=== PATIENT | female | born 1955 | race Caucasian/White ===

== ENCOUNTER 2017-09-24 14:43 | Emergency (ER) | payer OTHER ==
[~2017-09-24] VITALS: Ht 167.6 cm; Wt 88.7 kg
[~2017-09-24 14:43] MED LIST: ARIP15TA3 PO; BENZ0.5T PO; CALC-545 PO; CHOL2000 PO; DIVA500T4 PO; FLUP25VI2 IM; MELA1TAB15 PO; MIDO10TA PO; MULT-257 PO; NITR100C6 PO; PALI273S IM; TRAZ50TA18 PO
[2017-09-24 14:44] VITALS: BP 135/83
== END 2017-09-24 15:48 | disposition home or self-care (01) ==
LOC: ED 15:42
DX: Z76.0 Encounter for issue of repeat prescription (principal); F51.01 Primary insomnia
CPT/HCPCS: 99283

== ENCOUNTER 2018-05-25 20:44 | Emergency (ER) | payer OTHER ==
[~2018-05-25] VITALS: Ht 165.1 cm; Wt 85.8 kg
[~2018-05-25 20:44] MED LIST changes: -BENZ0.5T PO; +BENZ0.5T35 PO; +TRAZ-136 PO; -TRAZ50TA18 PO
[2018-05-25 20:46] VITALS: BP 133/79
== END 2018-05-25 21:55 | disposition home or self-care (01) ==
LOC: ED 21:10
DX: F22 Delusional disorders (principal)
CPT/HCPCS: 99281

== ENCOUNTER 2019-11-24 18:13 | Emergency (ER) | payer MEDICARE ==
[~2019-11-24] VITALS: Ht 167.6 cm; Wt 70.0 kg
[~2019-11-24 18:13] MED LIST changes: -TRAZ-136 PO; +TRAZ50TA66 PO
--- NOTE | 2019-11-24 18:29 | NUR ---
ERMS SHAM AT BEDSIDE FOR EVALUATION
--- NOTE | 2019-11-24 18:46 | NUR ---
REPORT TO TOMER SCRUGGS
[2019-11-24 18:48] LABS: BASOPHILS # (AUTO) 0.03 x10^3/uL (0-0.1); BASOPHILS % (AUTO) 0 % (0-1); EOSINOPHILS # (AUTO) 0.08 x10^3/uL (0-0.4); EOSINOPHILS % (AUTO) 1 % (1-7); LYMPHOCYTES # (AUTO) 2.14 x10^3/uL (1-3.4); LYMPHOCYTES % (AUTO) 26 % (22-44); MD NO; MEAN CORPUSCULAR HEMOGLOBIN 32.3 pg (27.0-34.8); MEAN CORPUSCULAR HGB CONC 33.5 g/dL (32.4-35.8); MEAN CORPUSCULAR VOLUME 96.4 fL (80-100); MEAN PLATELET VOLUME 7.8 fL (7.4-10.4); MONOCYTES # (AUTO) 0.48 x10^3/uL (0.2-0.8); MONOCYTES % (AUTO) 6 % (2-9); NEUTROPHILS # (AUTO) 5.38 x10^3/uL (1.8-6.8); NEUTROPHILS % (AUTO) 66 % (42-75); PLATELET COUNT 228 x10^3/uL (130-400); RED BLOOD COUNT 4.36 x10^6/uL (3.82-5.3); RED CELL DISTRIBUTION WIDTH 13.1 % (9.6-15.2)
--- NOTE | 2019-11-24 18:54 | NUR ---
REPORT FROM JEANETH SCRUGGS. PT RESTING. ROOM SECURED AND 1 BAG OF BELONGINGS LOCKED AWAY. VSS. PT RESTING WITH EYES CLOSED. EVEN RISE AND FALL OF CHEST OBSERVED. SITTER IN VIEW OF PT.
[2019-11-24 19:00] LABS: ALANINE AMINOTRANSFERASE 24 U/L (12-78); ALBUMIN 3.3 g/dL (3.4-5.0); ANION GAP 6 mmol/L (5-15); CALCIUM 9.5 mg/dL (8.5-10.1); CHLORIDE 109 mmol/L (98-107); CREATININE 0.61 mg/dL (0.55-1.02)
[2019-11-24 19:01] LABS: SALICYLATE LEVEL < 1.7 mg/dL (2.8-20.0)
[2019-11-24 19:02] LABS: ALKALINE PHOSPHATASE 90 U/L (45-117); BILIRUBIN,TOTAL 0.4 mg/dL (0.2-1.0); TOTAL PROTEIN 7.6 g/dL (6.4-8.2)
[2019-11-24 19:05] LABS: AMPHETAMINE SCREEN, URINE Negative (Negative); BARBITURATE SCREEN, URINE Negative (Negative); BENZODIAZEPINE SCREEN, URINE Negative (Negative); CANNABINOID SCREEN, URINE Negative (Negative); COCAINE SCREEN, URINE Negative (Negative); METHADONE SCREEN, URINE Negative (Negative); OPIATE SCREEN, URINE Negative (Negative)
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
--- NOTE | 2019-11-24 20:01 | NUR ---
pt given a sandwich and chips. Pt has no other needs at this time. call light in reach
--- NOTE | 2019-11-24 21:16 | NUR ---
PT REQUESTED MILK. PT GIVEN MILK AND IS NOW BACK IN BED. SITTER IN VIEW OF PT. VSS.
--- NOTE | 2019-11-24 22:30 | NUR ---
PT GIVEN BLANKET ON REQUEST. PT IN BED AND HAS NO OTHER NEEDS AT THIS TIME. SITTER IN VIEW OF PT.
--- NOTE | 2019-11-25 00:04 | NUR ---
Pt sleeping. even rise and fall of chest observed. Sitter in view of pt
--- NOTE | 2019-11-25 01:07 | NUR ---
Pt resting in nad. even rise and fall of chest observed. Sitter in view of pt.
--- NOTE | 2019-11-25 02:20 | NUR ---
PT SLEEPING. EVEN RISE AND FALL OF CHEST OBSERVED. SITTER IN VIEW OF PT
--- NOTE | 2019-11-25 03:17 | NUR ---
PT SLEEPING. EVEN RISE AND FALL OF CHEST OBSERVED. SITTER IN VIEW OF PT
--- NOTE | 2019-11-25 04:15 | NUR ---
pT RESTING WITH EYES CLOSED. EVEN RISE AND FALL OF CHEST OBSERVED. PT IN NAD. SITTER IN VIEW OF PT.
--- NOTE | 2019-11-25 05:10 | NUR ---
pT RESTING WITH EYES CLOSED. EVEN RISE AND FALL OF CHEST OBSERVED. PT IN NAD. SITTER IN VIEW OF PT.
--- NOTE | 2019-11-25 06:20 | NUR ---
PT UP TO BATHROOM. SITTER IN VIEW OF PT.
--- NOTE | 2019-11-25 06:52 | NUR ---
REPORT RECEIVED FROM TOMER SCRUGGS.
--- NOTE | 2019-11-25 08:23 | NUR ---
pt sleeping. resps even and unlabored. sitter monitoring from hallway. room remains secure.
--- NOTE | 2019-11-25 09:05 | NUR ---
pt resting. pt's aox4. resps even and unlabored. sitter monitoring from hallway for safety. room remains secure. vss.
--- NOTE | 2019-11-25 09:59 | NUR ---
pt amb to br and back to room with steady gait.
--- NOTE | 2019-11-25 10:25 | NUR ---
crusher plant operator at bedside to evaluate at this time.
--- NOTE | 2019-11-25 10:56 | NUR ---
MEAL TRAY ORDERED AT THIS TIME.
--- NOTE | 2019-11-25 11:23 | NUR ---
MEDICATION ORDERED FROM PHARMACY AT THIS TIME.
[2019-11-25] MEDS: RISPERIDONE 0.5 MG TABLET PO SCH ×2 (11:30→22:30)
--- NOTE | 2019-11-25 11:51 | NUR ---
MEAL TRAY PROVIDED AT THIS TIME.
--- NOTE | 2019-11-25 12:16 | NUR ---
BREAK RN: PT CURRENTLY DOZING ON NGUYEN. NAD NOTED. SKIN PWD. RESP EVEN AND UNLABORED. GARAGE DOORS DOWN IN ROOM. BELONGINGS IN LOCKED LOCKER. SITTER AT DOORSIDE.
--- NOTE | 2019-11-25 12:51 | NUR ---
PT MEDICATED PER EMAR. PT TOLERATED WELL.
--- NOTE | 2019-11-25 13:38 | NUR ---
PT RESTING. RESPS EVEN AND UNLABORED. SITTER MONITORING FROM HALLWAY FOR SAFETY. ROOM REMAINS SECURE.
--- NOTE | 2019-11-25 14:24 | NUR ---
PT STATES "I'M LEAVING. I NEED MY BELONGINGS." THIS RN EDUCATED REGARDING HER SITUATION. PT VERBALY UNDERSTANDING AT THIS TIME.
--- NOTE | 2019-11-25 15:29 | NUR ---
PT RESTING. RESPS EVEN AND UNLABORED. SITTER MONITORING FROM HALLWAY FOR SAFETY. ROOM REMAINS SECURE.
--- NOTE | 2019-11-25 16:28 | NUR ---
PT RESTING. RESPS EVEN AND UNLABORED. SITTER MONITORING FROM HALLWAY FOR SAFETY. ROOM REMAINS SECURE.
--- NOTE | 2019-11-25 17:03 | NUR ---
MEAL TRAY ORDERED AT THIS TIME.
--- NOTE | 2019-11-25 17:28 | NUR ---
MEAL TRAY PROVIDED AT THIS TIME.
--- NOTE | 2019-11-25 17:52 | NUR ---
pt's best friend phone number Dagoberto [phone] please call when pt dc/or transfer.
--- NOTE | 2019-11-25 18:30 | NUR ---
PT RESTING. SITTER MONITORING FROM HALLWAY. ROOM REMAINS SECURE.
--- NOTE | 2019-11-25 19:48 | NUR ---
1st contact c pt. resting on cart. sitter outside of room. denies any needs. dinner tray outside of room.
--- NOTE | 2019-11-25 20:58 | NUR ---
pt requesting dinner tray. sandwich provided. vss. pt resting her belongings & to leave after her meal. attempting to explain process. pt calm & cooperative. sitter remains outside of room. will ctm.
[2019-11-25] MEDS: BENZTROPINE 1 MG TABLET PO SCH (21:00)
--- NOTE | 2019-11-25 21:00 | NUR ---
pt refusing cogentin. "it makes me constipated"
--- NOTE | 2019-11-25 21:22 | NUR ---
pt standing naked in doorway, "i need my clothes, im leaving, im calling the police..youre kidnapping me". pt ambulatory to restroom, bedding changed & given new hospital gown. sitter outside of room. will ctm.
[2019-11-25] MEDS ORDERED: RISPERIDONE 2 MG TABLET ONE (22:26)
--- NOTE | 2019-11-25 22:45 | NUR ---
pt resting on cart in nad, rr even non labored. watching tv. denies any needs. sitter remains outside of room. will ctm.
--- NOTE | 2019-11-26 00:19 | NUR ---
pt sleeping in bed. rr even non labored. sitter remains outside of room. will ctm.
--- NOTE | 2019-11-26 01:15 | NUR ---
pt sleeping in bed. rr even non labored. sitter remains outside of room. will ctm.
--- NOTE | 2019-11-26 02:16 | NUR ---
pt sleeping in bed. rr even non labored. sitter remains outside of room. will ctm.
--- NOTE | 2019-11-26 03:34 | NUR ---
pt sleeping in bed, nad. rr even non labored. sitter remains outside of room. will ctm.
--- NOTE | 2019-11-26 04:01 | NUR ---
pt sleeping in bed. rr even non labored. sitter remains outside of room. will ctm.
--- NOTE | 2019-11-26 05:10 | NUR ---
pt sleeping in bed. rr even non labored. sitter remains outside of room. will ctm.
--- NOTE | 2019-11-26 06:15 | NUR ---
pt sleeping in bed. rr even non labored. sitter remains outside of room. will ctm.
--- NOTE | 2019-11-26 06:19 | NUR ---
breakfast tray ordered.
--- NOTE | 2019-11-26 07:13 | NUR ---
RECEIVED REPORT FROM SHEBA NORTH. PT IN BED, EYES CLOSED, RESPIRATIONS EVEN AND UNLABORED, NO SIGNS OF DISTRESS, LIGHTS OFF TO PROMOTE REST. IN VIEW OF SITTER.
--- NOTE | 2019-11-26 08:15 | NUR ---
PT CONDITION REMAINS UNCHANGED.
--- NOTE | 2019-11-26 09:29 | NUR ---
PT SITTING IN BED, EATING BREAKFAST, PT GOT UP NAKED, PT TOLD TO PUT ON GOWN AND THEN COULD HAVE BREAKFAST, INITIALLY PT STATED SHE DIDN'T NEED A GOWN SHE NEEDED CLOTHES TO LEAVE BUT WAS COMPLIANT WITH PUTTING GOWN ON.
[2019-11-26] MEDS: RISPERIDONE 0.5 MG TABLET PO SCH (09:33)
--- NOTE | 2019-11-26 09:34 | NUR ---
BREAK RN: MEDICATION ADMINISTERED PER EMAR. PT SITTING UP EATING BREAKFAST. NO NEEDS AT THIS TIME. SI PRECAUTIONS IMPLEMENTED. SITTER OUTSIDE OF DOOR. RN TO CONTINUE TO MONITOR.
--- NOTE | 2019-11-26 10:10 | NUR ---
PT STATES SHE IS NOT AND WAS NEVER SI, SHE "ONLY MADE STATEMENTS TO AVOID BEING KIDNAPPED" PT TALKING ABOUT GIVING HER CARE TO SOMEONE AND DIFFERENT AUTOINSURANCES, PT KNOWS WHERE SHE IS, PT MADE A REQUEST FOR EX-LAX STATING SHE HASN'T HAD A BM IN 3 DAYS, NO RELATED GI/ S/SX.
--- NOTE | 2019-11-26 11:09 | NUR ---
PT LAYING IN BED, RESPIRATIONS EVEN AND UNLABORED, TV ON.
--- NOTE | 2019-11-26 11:10 | NUR ---
PT REMAINS IN VIEW OF SITTER.
[2019-11-26] MEDS ORDERED: DOCUSATE 100 MG CAPSULE PO PRN (11:30)
[2019-11-26] MEDS ORDERED: BISACODYL 5 MG EC TABLET PO PRN (11:30)
--- NOTE | 2019-11-26 11:44 | NUR ---
PT ON PHONE WITH PAT FROM TELE-COURT.
--- NOTE | 2019-11-26 12:12 | NUR ---
PT AMBULATORY TO BATHROOM.
--- NOTE | 2019-11-26 13:07 | NUR ---
REPORT RECEIVED FROM SHEBA LOZADA. ASSUMING PRIMARY CARE OF PT.
--- NOTE | 2019-11-26 13:14 | NUR ---
LUNCH DELIVERED TO PT.
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
--- NOTE | 2019-11-26 15:44 | NUR ---
RN ORDERED PT A HOSPITAL BED. AWAITING DELIVERY.
[2019-11-26] MEDS ORDERED: DOCUSATE 100 MG CAPSULE ONE (16:07)
--- NOTE | 2019-11-26 16:12 | NUR ---
PT STATED HAD A BM TODAY BUT IS REQUESTING A STOOL SOFTNER. RN ADMINISTERED MEDICATION PER EMAR. PT NOW ON HOSPITAL BED.
--- NOTE | 2019-11-26 16:30 | NUR ---
DINNER DELIVERED TO PT.
--- NOTE | 2019-11-26 17:48 | NUR ---
PT RESTING COMFORTABLY ON GURNEY WATCHING TV. SI PRECAUTIONS IMPLEMENTED. SITTER OUTSIDE OF ROOM MONITORING PT. NO NEEDS AT THIS TIME. RN TO CONTINUE TO MONITOR.
--- NOTE | 2019-11-26 18:47 | NUR ---
RANDAL PT'S "BEST FRIEND" CALLED TO UPDATE RN. RANDAL STATED THAT PT WAS IN [place] FOR 2 [place]/2 MONTHS AND WAS RELEASED 10 DAYS AGO. RANDAL STATED WE "SHOULD NOT SEND HER TO A MENTAL HOSPITAL BECAUSE THEY DONT HELP AND JUST GET FRUSTERATED WITH HER." RANDAL STATED HE WOULD LOOK AFTER HER IF SHE GETS DISCHARGED. PT STATES BIRTHDATE IS 1955. RANDAL STATED THAT PT'S NAME IS LEANNE BUCHANAN. RN TO UPDATE THROUGHPUT.
--- NOTE | 2019-11-26 19:04 | NUR ---
REPORT TO SHEBA ELIZABETH.
--- NOTE | 2019-11-26 19:04 | NUR ---
Report received from SHEBA Dey. This RN to assume care. Patient resting in [facility] with no complaints. Room secured. Sitter outside.
--- NOTE | 2019-11-26 20:20 | NUR ---
Patient resting in gurney with no complaints. Respirations even and unlabored. Room secured; sitter outside.
[2019-11-26] MEDS: BENZTROPINE 1 MG TABLET PO SCH (21:00)
[2019-11-26] MEDS ORDERED: RISPERIDONE 0.5 MG TABLET PO SCH (21:00)
--- NOTE | 2019-11-26 21:10 | NUR ---
Medicated patient per mar. Patient resting in [facility] with no complaints. Respirations even and unlabored. Room secured; sitter outside.
[2019-11-26] MEDS ORDERED: BENZTROPINE 1 MG TABLET ONE (21:15)
--- NOTE | 2019-11-26 22:25 | NUR ---
Patient sleeping in [facility] with no complaints. Respirations even and unlabored. Room secured; sitter outside.
--- NOTE | 2019-11-26 23:30 | NUR ---
Patient sleeping in [facility] with no complaints. Respirations even and unlabored. Room secured; sitter outside.
--- NOTE | 2019-11-27 00:20 | NUR ---
Patient sleeping in [facility] with no complaints. Respirations even and unlabored. Room secured; sitter outside.
--- NOTE | 2019-11-27 01:46 | NUR ---
Patient sleeping in [facility] with no complaints. Respirations even and unlabored. Room secured; sitter outside.
--- NOTE | 2019-11-27 02:42 | NUR ---
Patient sleeping in [facility] with no complaints. Respirations even and unlabored. Room secured; sitter outside.
--- NOTE | 2019-11-27 03:50 | NUR ---
Patient sleeping in [facility] with no complaints. Respirations even and unlabored. Room secured; sitter outside.
--- NOTE | 2019-11-27 04:30 | NUR ---
Patient sleeping in [facility] with no complaints. Respirations even and unlabored. Room secured; sitter outside.
--- NOTE | 2019-11-27 04:59 | NUR ---
Patient sleeping in [facility] with no complaints. Respirations even and unlabored. Room secured; sitter outside.
--- NOTE | 2019-11-27 05:37 | NUR ---
Patient awake and requesting underwear. Provided maternity underwear.
--- NOTE | 2019-11-27 07:35 | NUR ---
Received bedside report from SHEBA Gauthier. All questions answered. Pt resting with eyes closed on right lateral side with unlabored respirations and even chest rise and fall. Room remains secured for SI/HI. Sitter in direct line of sight for observation. No needs expressed at this time.
[2019-11-27] MEDS ORDERED: RISPERIDONE 0.5 MG TABLET PO SCH (09:00)
--- NOTE | 2019-11-27 09:02 | NUR ---
LATE NOTE ENTRY DUE TO PT CARE for 0800: Provided pt meal tray. Pt sitting on hospital bed in SI/HI secured room with sitter in direct line of sight for observation. No needs expressed at this time.
--- NOTE | 2019-11-27 09:03 | NUR ---
LATE NOTE ENTRY FOR 0858: Called pharmacy to follow up on medication request yellow slip that was sent prior. Pharmacy tubed meds to dept.
--- NOTE | 2019-11-27 09:14 | NUR ---
TOOK VITALS 0910
[2019-11-27 09:20] VITALS: BP 118/77
--- NOTE | 2019-11-27 09:24 | NUR ---
Pt is AOx2 to person and place. Pt denies SI/HI. Pt pain. Provided pt medication per EMAR. Pt appreciative. No other needs expressed at this time.
--- NOTE | 2019-11-27 11:00 | NUR ---
Pt resting on hospital bed with eyes closed. Pt has unlabored respirations with even chest rise and fall. No needs expressed at this time. Room remains secured for SI/HI. Sitter in direct line of sight for observation.
--- NOTE | 2019-11-27 12:09 | NUR ---
BREAK RN: PT CALMLY SLEEPING ON HOSPITAL BED, NAD WITH EQUAL CHEST RISE/FALL, NO NEEDS AT THIS TIME, MEAL TRAY GIVEN BY PRIMARY RN, PT REMAINS IN SAFE ENVIRONMENT, SITTER IN VIEW.
--- NOTE | 2019-11-27 13:20 | NUR ---
Attempted to contact pt's "best friend Dagoberto" at phone number [phone], left vm requesting a phone call back.
--- NOTE | 2019-11-27 13:53 | NUR ---
Dagoberto returned phone call and states he will be brining identificaiton to ED for copies around 5pm today.
--- NOTE | 2019-11-27 14:02 | NUR ---
Pt resting asleep on hospital bed. NADN. No needs expressed at this time. Sitter near doorway in direct line of sight for observation. Pt has unlabored respirations with even chest rise and fall.
--- NOTE | 2019-11-27 16:05 | NUR ---
Pt's friend Dagoberto provided pt's ID to ED admitting and this was provided to throughput RN. Pt awake sitting on hospital eating lunch tray. No needs expressed at this time. Sitter in direct line of sight for observation.
--- NOTE | 2019-11-27 16:52 | NUR ---
Provided report to SHEBA Best for U. All questions answered. Pt ready to transfer from ED to U 383.
[2019-11-28] MEDS ORDERED: CHLO200T2 PO (10:09)
[2019-11-28] MEDS ORDERED: BENZ0.5T35 PO (10:12)
== END 2019-11-27 17:35 ==
LOC: EDBD → ED 19:04 → MERGE 19:04 → ED 11-27 17:35
DX: F23 Brief psychotic disorder (principal); Z87.891 Personal history of nicotine dependence
CPT/HCPCS: 36415; 80053; 80307; 85025; 99285

== ENCOUNTER 2020-09-02 10:55 | Emergency (ER) | payer MEDICARE ==
[~2020-09-02] VITALS: Ht 167.6 cm; Wt 87.8 kg
[~2020-09-02 10:55] MED LIST changes: -CALC-545 PO; +CALC-780 PO; +CHLO200T2 PO; +MULT9LIQ10 PO; +OXCA150T18 PO; +ZOLP10TA PO
--- NOTE | 2020-09-02 14:20 | NUR ---
PT RESTING IN BED WITH MONITOR ON, PT VSS. PT HAS REQUESTED A PAIN MED FOR HER CRONIC R THIGH PAIN, PROVIDER NOTIFIED.
[2020-09-02] MEDS ORDERED: HYDROcodone/APAP 5/325 TABLET ONE (14:50)
--- NOTE | 2020-09-02 14:53 | NUR ---
PT MEDICATED PER MAR
[2020-09-02] MEDS ORDERED: HYDROcodone/APAP 5/325 TABLET PO ONE (15:00)
[2020-09-02 15:21] VITALS: BP 137/80
== END 2020-09-02 15:28 | disposition home or self-care (01) ==
LOC: ED 11:14
DX: M25.551 Pain in right hip (principal); F20.9 Schizophrenia, unspecified; Z20.822 Contact with and (suspected) exposure to COVID-19; Z91.14 Patient's other noncompliance with medication regimen; Z86.73 Personal history of transient ischemic attack (TIA), and cerebral infarction without residual deficits
CPT/HCPCS: 71045; 87635; 99284

== ENCOUNTER 2020-09-07 09:36 | Emergency (ER) | payer SELFPAY | END 2020-09-07 10:21 | disposition left against medical advice (07) | LOC: EDUNIT# 09:36 → ED 09:36 | DX: Z53.21 Procedure and treatment not carried out due to patient leaving prior to being seen by health care provider (principal) ==

== ENCOUNTER 2020-09-07 09:39 | Emergency (ER) | payer MEDICARE ==
[~2020-09-07] VITALS: Ht 167.6 cm; Wt 88.2 kg
[2020-09-07 09:49] VITALS: BP 119/51
[2020-09-07] MEDS ORDERED: ARIPIPRAZOLE 5 MG TABLET PO SCH (10:30)
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
[2020-09-07 11:16] LABS: BASOPHILS % (AUTO) 1 % (0-1); EOSINOPHILS % (AUTO) 2 % (1-7); LYMPHOCYTES % (AUTO) 40 % (22-44); MEAN CORPUSCULAR HGB CONC 33.3 g/dL (32.4-35.8); MEAN PLATELET VOLUME 7.9 fL (7.4-10.4); MONOCYTES % (AUTO) 7 % (2-9); NEUTROPHILS % (AUTO) 50 % (42-75); PLATELET COUNT 259 x10^3/uL (130-400); RED BLOOD COUNT 4.11 x10^6/uL (3.82-5.3); RED CELL DISTRIBUTION WIDTH 13.2 % (9.6-15.2)
[2020-09-07 11:21] LABS: MD NO
[2020-09-07 11:26] LABS: CHLORIDE 110 mmol/L (98-107)
[2020-09-07 11:32] LABS: ALBUMIN 3.4 g/dL (3.4-5.0); ANION GAP 3 mmol/L (5-15); CALCIUM 9.3 mg/dL (8.5-10.1); CREATININE 0.65 mg/dL (0.55-1.02)
[2020-09-07 11:35] LABS: SALICYLATE LEVEL < 1.7 mg/dL (2.8-20.0)
--- NOTE | 2020-09-07 13:33 | NUR ---
Pt provided less than 1mL for urine sample. Pt given water and asked to pee again, given hat in attempt to catch more urine. Pt cooperative.
[2020-09-07] MEDS ORDERED: ARIPIPRAZOLE 5 MG TABLET ONE (14:43)
--- NOTE | 2020-09-07 15:02 | NUR ---
Pt refused medication from this RN, U RN made aware.
== END 2020-09-07 15:16 ==
LOC: ED 10:02
DX: F23 Brief psychotic disorder (principal); Z20.822 Contact with and (suspected) exposure to COVID-19; Z86.73 Personal history of transient ischemic attack (TIA), and cerebral infarction without residual deficits; Z88.8 Allergy status to other drugs, medicaments and biological substances
CPT/HCPCS: 36415; 80048; 80299; 80320; 80329; 82040; 85025; 87426; 99285; G0480